=== PATIENT | male | born 1965 | race Caucasian/White ===

== ENCOUNTER 2025-05-12 18:36 | Emergency (ER) | payer MEDICARE, OTHER ==
[~2025-05-12] VITALS: Ht 177.8 cm; Wt 81.7 kg
[2025-05-12 18:36] VITALS: BP 180/114
[~2025-05-12 18:36] MED LIST: ACET500 PO; ALBU90OI INH; Augmentin 875-1 EACH PO; CEPH500 PO; CYCL10 PO; ERYT.5TO OD; HYDACE5 PO; IBUP600 PO; IBUP800 PO; NAPR220; NAPR500 PO; NAPR550 PO; Norco 5-325 Ta1 EACH PO; OXYACE5T PO; OXYACE7.5T PO; PENVK500 PO; PROACE100 PO; PROM25 PO; RXCYCL10 PO; Robaxin500 MG PO; SULTRIDS PO; TOBDEXOPSU OD; TRAM50 PO; Zithromax250 MG PO
[2025-05-12] MEDS ORDERED: HYDROmorphone HCl/Pf 1MG SYR IV PRN (18:45)
[2025-05-12] MEDS ORDERED: Ondansetron HCl 2 MG / ML 2ML Vial IV PRN (18:45)
[2025-05-12 19:01] LABS: BASOPHILS ABSOLUTE AUTO 0.05 K/mm3 (0.00-0.23); BASOPHILS PERCENT AUTO 1 % (0-2); EOSINOPHILS ABSOLUTE AUTO 0.13 K/mm3 (0.00-0.68); EOSINOPHILS PERCENT AUTO 2 % (0-6); Hematocrit 45.0 % (37.0-53.0); Hemoglobin 15.3 g/dL (13.5-17.5); IMMATURE GRAN ABSOLUTE AUTO 0.02 K/mm3 (0.00-0.10); IMMATURE GRAN PERCENT AUTO 0 % (0-1); LYMPHOCYTES ABSOLUTE AUTO 1.93 K/mm3 (0.84-5.20); LYMPHOCYTES PERCENT AUTO 25 % (21-46); MONOCYTES ABSOLUTE AUTO 0.47 K/mm3 (0.16-1.47); MONOCYTES PERCENT AUTO 6 % (4-13); Mean Corpuscular HGB Conc 34.0 g/dL (31.5-36.5); Mean Corpuscular Volume 90 fL (80-100); NEUTROPHILS ABSOLUTE AUTO 5.10 K/mm3 (1.96-9.15); NEUTROPHILS PERCENT AUTO 66 % (41-73); NRBC ABSOLUTE 0.00 K/mm3 (0.00-0.02); NRBC Auto 0.0 /100 WBC (0.0-0.2); Platelet Count 289 K/mm3 (150-400); RDW Coefficient Variation 13.1 % (11.7-14.2); RDW Standard Deviation 42.8 fL (35.1-46.3)
[2025-05-12 19:17] LABS: Prothrombin Time Results 11.4 Sec (9.7-11.5)
[2025-05-12 19:39] LABS: Alanine Aminotransfer (ALT/SGP 23 U/L (12-78); Albumin, Blood 3.7 g/dL (3.4-5.0); Albumin/Globulin Ratio 0.9 (0.8-1.8); Anion Gap 8 mmol/L (3-11); Aspartate Aminotrans (AST/SGOT 19 U/L (12-37); Bilirubin, Total 0.5 mg/dL (0.1-1.0); Blood Urea Nitrogen 11 mg/dL (8-24); CO2, Blood 26 mmol/L (21-32); Calcium, Blood 9.1 mg/dL (8.5-10.1); Chloride, Blood 107 mmol/L (98-108); Creatinine, Blood 1.03 mg/dL (0.60-1.20); Ethanol (Alcohol), Blood, Med <3 mg/dL; Globulin, Blood 4.0 g/dL (2.2-4.0); Glucose, Blood 121 mg/dL (70-99); Potassium, Blood 4.1 mmol/L (3.5-5.5); Sodium, Blood 137 mmol/L (136-145); Total Protein, Blood 7.7 g/dL (6.4-8.2)
[2025-05-12] MEDS ORDERED: IBUP600 PO (20:28)
[2025-05-12] MEDS ORDERED: ACET500 PO (20:28)
== END 2025-05-12 20:45 | disposition home or self-care (01) ==
LOC: ER 18:36
PROVIDERS: Emergency Medicine
DX: M25.562 Pain in left knee (principal); M54.2 Cervicalgia; R51.9 Headache, unspecified; F17.200 Nicotine dependence, unspecified, uncomplicated; R55 Syncope and collapse; V89.2XXA Person injured in unspecified motor-vehicle accident, traffic, initial encounter
CPT/HCPCS: 70450; 71260; 72125; 74177; 80053; 80320; 83690; 85025; 85610; 99284-25; Q9967